=== PATIENT | female | born 1955 | race African-American/Black ===

== ENCOUNTER → 2017-01-14 | Day surgery (SDC) | payer OTHER ==
--- NOTE | 2017-01-15 06:50 | OP ---
DATE OF OPERATION: 01/14/2017 PREOPERATIVE DIAGNOSIS: Left breast mass 1030 at 7-8 cm from the nipple. POSTOPERATIVE DIAGNOSIS: Left breast mass 1030 at 7-8 cm from the nipple. PROCEDURE: Left ultrasound-guided core biopsy with clip placement. ANESTHESIA: Local. ATTENDING SURGEON: Mariaa Cm MD ESTIMATED BLOOD LOSS: Minimal. COMPLICATIONS: None. DESCRIPTION OF PROCEDURE: The patient was made aware of the risks and benefits of the procedure and consented. Initially I attempted to do a cyst aspiration under sterile conditions with 1% lidocaine for local anesthesia but was unable to aspirate any fluid, and it was obvious that this lesion was solid at this time. More anesthesia was given, and a small campbell was made in the skin. Using a 13-gauge lateral approach under ultrasound guidance, 10 cores were obtained and submitted to Pathology. Likewise, under ultrasound guidance, a clip was placed into the biopsy region. The patient tolerated the procedure well. Steri-Strips and a sterile bandage was applied. We will contact her with results. MARIAA CM M.D. [id number]
--- NOTE | 2017-01-18 14:28 | PATH ---
Surgical Pathology Report Patient Name: DANIEL GIRARD [facility]. Rec. #: [id number] /Age/Gender: 1955 (Age: 61) / F Account: [id number] Location: [facility] Taken: 01/14/2017 Received: 01/14/2017 Reported: 01/18/2017 Physicians: Mariaa Cm M.D. Specimen(s) Received LEFT BREAST CORE BIOPSY 10:30, 7-8 CM FN Clinical History Nonpalpable lesion, highly suspicious/malignant Final Diagnosis LEFT BREAST, 10:30, 7-8 CM FROM NIPPLE, NEEDLE CORE BIOPSY: POORLY DIFFERENTIATED INVASIVE DUCTAL CARCINOMA, MEASURING AT LEAST 0.3 CM MEASURED ON A SLIDE. Comment: This case was discussed with JALEESA Leonard of Dr. Mariaa Cm's office at 11:30 AM on January 18, 2017. Also see prior specimens [id number] and [id number]. Results of Estrogen Receptor (ER) and Progesterone Receptor (CT) studies performed at Health system are as follows: ER (clone [id number] mouse monoclonal antibody by [employer]): 0% nuclear staining (Negative). CT (clone16 mouse monoclonal antibody by [employer]): 0% nuclear staining (Negative). Assays for HER-2/calixto and Ki67 are pending and a report will follow. Positive and negative controls (internal if applicable) show appropriate results. Formalin fixation time (approximately 74 hrs) exceeds current ASCO/CAP recommendations for ER, CT & Her2 testing (6-72 hrs). Negative results must be interpreted with caution as false negatives may occur. Cold ischemic time is within recommended guidelines. Electronically Signed Levi James M.D. Addendum Reported: 01/19/2017 Addendum Diagnosis Results of Her2 (IHC) & Ki-67 studies performed at [place], [place] ([id number]) are as follows: Her2 IHC (EP3 from [employer], formerly known as [id number], using [employer] Polymer Refine detection kit): 0 (Negative) Ki-67: up to 30% (High proliferation index) Positive and negative controls (internal if applicable) show appropriate results. Chencho Marcum M.D. Gross Description Received in formalin, labeled "left breast 10:30, 7-8 cmfn," are 2 sandoval-yellow, cylindrical portions of fibroadipose tissue measuring 0.8 and 1.1 cm in length and averaging 0.1 cm in diameter. The specimen is admixed with blood clot. The specimen is submitted in toto in one cassette. Time to formalin fixation: Less than one minute Total formalin fixation time: Approximately 74 hours. 01/17/2017 [facility]01/17/2017
== END | disposition home or self-care (01) ==
LOC: FRADUS-SUR 15:13
PROVIDERS: ATTEND Surgery Surgical Oncology
PROC: 0HBU3ZX Excision of Left Breast, Percutaneous Approach, Diagnostic (ICD-10-PCS; principal; 2017-01-14)
DX: N63 Unspecified lump in breast (principal); C50.212 Malignant neoplasm of upper-inner quadrant of left female breast
CPT/HCPCS: 19083; 88305-TC; 88342-TC

== ENCOUNTER 2017-10-18 08:19 | Day surgery (SDC) | payer OTHER ==
--- NOTE | 2017-10-12 13:35 | HP ---
Admitting History and Physical - Primary Care Physician PCP: Mariaa Cm - Admission Chief Complaint: Left breast cancer History of Present Illness: 62 year old postmenapausal female S/P right breast wide excision snbx ERBT and VUS RAD51D now with new left breast cancer UIQ triple negative. She finished neoadjuvant chemotherapy. Breast MRI Left breast showed complete resolution of previously noted mass which was initially in 10:00 position representing cancer. Right breast post surgical changes no recurrence. History Source: Patient Limitations to Obtaining History: No Limitations - Past Medical History Cardiovascular: Yes: HTN, Hyperlipdemia - Past Surgical History Additional Past Surgical History: 12/11/[address] snbx 1.7 cm ER/WA + HER 2 - 1+micro/2 nodes arimidex. ERBT - Smoking History Smoking history: Former smoker Have you smoked in the past 12 months: No If you are a former smoker, when did you quit?: 1995 - Alcohol/Substance Use Hx Alcohol Use: Yes (3 ON WEEKEND) Home Medications - Allergies Allergies/Adverse Reactions: Allergies Allergy/AdvReac Type Severity Reaction Status Date / Time adhesive Allergy Severe Rash Verified 12/04/13 11:37 epinephrine AdvReac Severe PALPITATION Verified 12/04/13 11:36 S/SVT - Home Medications Home Medications: Ambulatory Orders Amlodipine Besylate [Norvasc -] 5 mg PO HS 12/04/13 Atorvastatin Ca [Lipitor -] 20 mg PO HS 12/04/13 Cholecalciferol (Vitamin D3) [Vitamin D] 2,000 unit PO HS 12/04/13 Lisinopril/Hydrochlorothiazide [Lisinopril-Hctz 20-25 mg Tab] 1 each PO HS 12/04 Metoprolol Succinate [Toprol XL -] 50 mg PO HS 12/04/13 Family Disease History - Family Disease History Family Disease History: CA: Father (renal cell carcinoma 55 ), Mother ( [id number] ) Physical Examination Constitutional: Yes: No Distress Breast(s): Yes: Other (Healed incision right breast from prior wide excision . no palpable masses or adenopathy bilaterally) Problem List - Problems (1) Breast cancer, left breast Code(s): C50.912 - MALIGNANT NEOPLASM OF UNSPECIFIED SITE OF LEFT FEMALE BREAST Qualifiers: Breast location: upper inner quadrant of breast Patient sex: female Assessment/Plan Left breast wide excision mammogram needle localization, lymphoscintogram, sentenel node biopsy,possible axillary node dissection
[2017-10-12 13:50] VITALS: BMI 39.4
[2017-10-18] MEDS ORDERED: MIDAZOLAM HCL 2 MG/2 ML SINGLE DOSE VIAL ONE (12:22)
[2017-10-18] MEDS ORDERED: PROPOFOL 20 ML ONE ×2 (12:22→13:14)
[2017-10-18] MEDS ORDERED: LIDOCAINE HCL/PF 2% SDV 5ML VIAL ONE (12:23)
[2017-10-18] MEDS ORDERED: LIDOCAINE HCL 1%, 10 MG/ML (20ML VIAL) ONE (12:24)
[2017-10-18] MEDS ORDERED: ISOSULFAN BLUE 10 MG/ML VIAL SQ ONE (12:24)
[2017-10-18] MEDS ORDERED: BUPIVACAINE HCL/PF 2.5 MG/ML - 30 ML VIAL IJ ONE (12:24)
[2017-10-18] MEDS ORDERED: ONDANSETRON 4 MG/2 ML VIAL ONE (12:27)
[2017-10-18] MEDS ORDERED: DEXAMETHASONE SOD PHOSPHATE 4 MG/1 ML VIAL ONE (12:27)
[2017-10-18] MEDS ORDERED: KETOROLAC TROMETHAMINE 30 MG/1 ML VIAL IVPUSH PRN (12:49)
[2017-10-18] MEDS ORDERED: ONDANSETRON 4 MG/2 ML VIAL IVPUSH PRN (12:49)
[2017-10-18] MEDS ORDERED: DEXTROSE 5%-0.45% SALINE 1,000 ML IV SCH (13:00)
[2017-10-18] MEDS ORDERED: ceFAZolin SODIUM 1 GM VIAL ONE (13:18)
[2017-10-18] MEDS ORDERED: BUPIVACAINE HCL/PF 0.25% (2.5MG/ML) 10 ML VIAL IJ ONE (13:35)
[2017-10-18] MEDS ORDERED: LIDOCAINE HCL 1%, 10 MG/ML (50 mL VIAL) IJ ONE (13:35)
[2017-10-18] MEDS ORDERED: ROCURONIUM BROMIDE 50 MG/5 ML VIAL ONE (13:44)
[2017-10-18] MEDS ORDERED: KETOROLAC TROMETHAMINE 30 MG/1 ML VIAL ONE (14:14)
[2017-10-18] MEDS ORDERED: ePHEDrine SULFATE 50 MG/1 ML AMPULE ONE (14:40)
[2017-10-18] MEDS ORDERED: ADENOSINE 6 MG/2 ML VIAL IVPUSH ONE ×3 (15:12→15:29)
[2017-10-18] MEDS ORDERED: oxyCODONE HCL 5 MG TABLET PO PRN (15:27)
[2017-10-18] MEDS ORDERED: SODIUM CHLORIDE 500 ML IV STA (15:27)
[2017-10-18 16:42] VITALS: TEMP 97.7
[2017-10-18 17:22] VITALS: BP 128/79; PULSE 85
--- NOTE | 2017-10-19 11:53 | OP ---
DATE OF OPERATION: 10/18/2017 PREOPERATIVE DIAGNOSIS: Left breast cancer status post neoadjuvant chemotherapy. POSTOPERATIVE DIAGNOSIS: Left breast cancer status post neoadjuvant chemotherapy. PROCEDURE: Left breast partial mastectomy with complex tissue transfer and sentinel lymph node biopsy. ANESTHESIA: General intubated. ATTENDING SURGEON: Mariaa Cm MD BUSINESS TRAINER: JALEESA Fragoso ESTIMATED BLOOD LOSS: Minimal. COMPLICATIONS: None. DESCRIPTION OF PROCEDURE: Patient as made aware of the risks and benefits of the procedure and consented. She was placed in a supine position. Preoperatively, she had gone to Radiology where a wire was placed next to the index lesion, as well as Nuclear Medicine for injections of technetium. After general anesthesia was induced, the patient was intubated. The operative site was prepped and draped in the usual sterile fashion. Next, 2.5 mL of 1% isosulfan blue were locally infiltrated. Waiting approximately 10 minutes with gentle manual compression, a curvilinear incision was made in the left axilla. Interestingly, there was very little to no hot uptake in the axilla, but 2 clusters of blue lymph nodes were identified and surgically excised and submitted for frozen section. Frozen section was reported as no evidence of malignancy. Palpation of the rest of the axilla and interrogation with the Neoprobe showed no suspicious nodules or hot spots. The wound was copiously irrigated with normal saline. Hemostasis maintained with electrocautery. The wound was then closed with deep 3-0 Vicryl, followed by a running subcuticular 4-0 Monocryl. The left breast was then approached. A curvilinear incision was made next to the wire. Using electrocautery, thick skin flaps were made. The needle was withdrawn to the puncture site, and the wire through the wound. Tissues around the wire were then sharply excised and submitted with a short suture superior, long suture lateral. The specimen radiograph confirmed the presence of the index lesion. Additional segments were taken out superior, inferior, medial, lateral, deep, and anterior with clips at the new margin. The wound was copiously irrigated with normal saline. Hemostasis maintained with electrocautery. Thick skin flaps were made and rotated into the defect. The posterior wall was then closed with figure-of-8 suture of 2-0 Vicryl. A 2 x 3 BioZorb device was placed into the cavity and sutured to the farley of the cavity with 2-0 Vicryl. The breast tissue was then sutured over the device with multiple figure-of-8 sutures of 2-0 Vicryl. Skin was then closed. The incisions were then locally infiltrated with a 1:1 mixture of 1% lidocaine with 0.25% bupivacaine without epinephrine. Dermabond was then applied as well as sterile dressing and a compression bra. Patient tolerated the procedure well, was transferred to the recovery room in excellent condition. Dorys [id number]
--- NOTE | 2017-10-21 17:43 | PATH ---
Surgical Pathology Report Patient Name: DANIEL GIRARD [facility]. Rec. #: [id number] /Age/Gender: 1955 (Age: 62) / F Account: [id number] Location: [facility] Taken: 10/18/2017 Received: 10/18/2017 Reported: 10/21/2017 Physicians: Mariaa Cm M.D. Specimen(s) Received A: LEFT AXILLARY SENTINEL NODES (FS) B: LEFT BREAST WIDE EXCISION C: LEFT BREAST DEEP MARGIN D: LEFT BREAST SUPERIOR MARGIN E: LEFT BREAST INFERIOR MARGIN F: LEFT BREAST ANTERIOR MARGIN G: LEFT BREAST MEDIAL MARGIN H: LEFT BREAST LATERAL MARGIN Clinical History Invasive Ca Intraoperative Consult Diagnosis A. Left axilla sentinel nodes, frozen section: Two benign lymph nodes. Dr. James, October 18, 2017 Final Diagnosis A. LYMPH NODES, LEFT AXILLARY SENTINEL, EXCISION (FS): TWO LYMPH NODES, NEGATIVE FOR METASTATIC CARCINOMA (0/2). B. BREAST, LEFT, WIDE EXCISION: BENIGN BREAST TISSUE SHOWING DENSE FIBROSIS WITH ASSOCIATED PRIOR BIOPSY SITE CHANGES, CONSISTENT WITH PRIOR TREATED TUMOR BED TISSUE. NO RESIDUAL CARCINOMA IS IDENTIFIED. PATHOLOGIC STAGE (ypTNM):ypT0 ypN0. C. BREAST, LEFT, DEEP MARGIN, EXCISION: BENIGN PREDOMINANTLY FATTY BREAST TISSUE. D. BREAST, LEFT, SUPERIOR MARGIN, EXCISION: BENIGN PREDOMINANTLY FATTY BREAST TISSUE. E. BREAST, LEFT, INFERIOR MARGIN, EXCISION: BENIGN BREAST TISSUE SHOWING STROMAL FIBROSIS. F. BREAST, LEFT, ANTERIOR MARGIN, EXCISION: BENIGN BREAST TISSUE. G. BREAST, LEFT, MEDIAL MARGIN, EXCISION: BENIGN BREAST TISSUE. H. BREAST, LEFT, LATERAL MARGIN, EXCISION: BENIGN BREAST TISSUE. Electronically Signed Kim Tsang M.D. Gross Description A. Received fresh labeled "left axilla sentinel nodes" are 2 pieces of yellow fatty tissue each which contains one lymph node, one of which measure 0.8 cm in greatest dimension, one of which measure 0.5 cm in greatest dimension. Cut surface of the lymph nodes reveals no focal lesions. The larger lymph node is bisected and frozen and the frozen remainder is submitted in cassette FSA1. The smaller lymph node is bisected and frozen and the frozen remainder is submitted in cassette FSA2. B. Received in formalin, labeled "left breast wide excision," is a 5.0 x 4.8 x 2.3 cm. sandoval-yellow, irregular, portion of fibroadipose tissue with a needle localization wire present. There is a short suture marking the superior aspect and a long suture marking the lateral aspect, per the surgeon. There is no skin present. The specimen is inked as follows: superior and lateral blue; inferior green; medial yellow; anterior red; deep black. The specimen is serially sectioned from medial to lateral. Sectioning reveals a 1.5 x 1.1 x 1.0 cm area of dense fibrosis focally abutting the deep margin. The remaining margins appear widely clear of the area of fibrosis. Castings Drafter sections are submitted in 9 cassettes as follows: 1-2-one full-face section of area of fibrosis each (each with deep margin); 0-4-gwrxvxceem sections of area of fibrosis with anterior and deep margins; 5-additional anterior margin; 6-lateral margin; 7-medial margin; 8-superior margin; 9-anterior margin. Time to formalin fixation: 11 minutes Total formalin fixation time: Approximately 28 hours. C. Received in formalin labeled "left breast deep margin," is a 4.0 x 3.2 x 1.5 cm irregular portion of fibroadipose tissue with a clip marking the new margin, per the surgeon. The new margin is inked green and the specimen is serially sectioned. The specimen is entirely and sequentially submitted in 5 cassettes. D. Received in formalin labeled "left breast superior margin," is a 1.7 x 0.9 x 0.4 cm irregular portion of fibroadipose tissue with a clip marking the new margin, per the surgeon. The new margin is inked green and the specimen is serially sectioned. The specimen is entirely submitted in 2 cassettes. E. Received in formalin labeled "left breast inferior margin," is a 3.8 x 3.2 x 1.3 cm irregular portion of fibroadipose tissue with a clip marking the new margin, per the surgeon. The new margin is inked green and the specimen is serially sectioned. The specimen is entirely and sequentially submitted in 6 cassettes. F. Received in formalin labeled "left breast anterior margin," is a 2.4 x 1.7 x 0.8 cm irregular portion of fibroadipose tissue with a clip marking the new margin, per the surgeon. The new margin is inked green and the specimen is serially sectioned. The specimen is entirely submitted in 2 cassettes. G. Received in formalin labeled "left breast medial margin," is a 2.7 x 1.8 x 0.8 cm irregular portion of fibroadipose tissue with a clip marking the new margin, per the surgeon. The new margin is inked green and the specimen is serially sectioned. The specimen is entirely submitted in 2 cassettes. H. Received in formalin labeled "left breast lateral margin," is a 2.5 x 1.8 x 0.7 cm irregular portion of fibroadipose tissue with a clip marking the new margin, per the surgeon. The new margin is inked green and the specimen is serially sectioned. The specimen is entirely submitted in 3 cassettes. [facility]
== END 2017-10-18 17:30 | disposition home or self-care (01) ==
LOC: FASU 08:19
PROVIDERS: ATTEND Surgery Surgical Oncology
PROC: 0HBU0ZZ Excision of Left Breast, Open Approach (ICD-10-PCS; principal; 2017-10-18 13:40)
PROC: 0JX60ZC Transfer Chest Subcutaneous Tissue and Fascia with Skin, Subcutaneous Tissue and Fascia, Open Approach (ICD-10-PCS; 2017-10-18 13:40)
DX: C50.912 Malignant neoplasm of unspecified site of left female breast (principal); I10 Essential (primary) hypertension; E78.5 Hyperlipidemia, unspecified; Z87.891 Personal history of nicotine dependence; Z92.21 Personal history of antineoplastic chemotherapy
CPT/HCPCS: 19281; 78195-TC; 88307-TC; 88331-TC; 94760; A9541